=== PATIENT | male | born 1965 | race African-American/Black ===

== ENCOUNTER 2022-10-25 07:28 | Inpatient (IN) | payer MEDICAID, OTHER ==
[~2022-10-25] VITALS: Ht 180.3 cm; Wt 67.6 kg
[~2022-10-25 07:28] MED LIST: AZIT250T MT; P50 MT; PHEN100C4 PO
[2022-10-25 07:37] VITALS: O2SAT 99
[2022-10-25] MEDS ORDERED: MORPHINE SULFATE 4 MG/ML CPJ (NOT FOR IM USE) IV STA (07:41)
[2022-10-25 08:07] LABS: BASOPHILS % 0.4 % (0.0-2.0); EOSINOPHILS % 0.8 % (0.0-5.0); HEMATOCRIT. 47.1 % (42.0-52.0); HEMOGLOBIN. 16.1 g/dL (14.0-18.0); LYMPHOCYTES % 19.6 % (20.0-50.0); MEAN CORPUSCULAR HEMOGLOBIN 30.5 pg (28.0-32.0); MEAN CORPUSCULAR HGB CONC 34.1 g/dL (31.0-37.0); MEAN CORPUSCULAR VOLUME 89.4 fL (80.0-94.0); MONOCYTES % 7.7 % (2.0-8.0); NEUTROPHILS % 71.5 % (40.0-76.0); RED BLOOD CELL COUNT 5.27 mill/uL (4.7-6.1)
[2022-10-25 08:14] LABS: DIFFERENTIAL COMMENT 1
[2022-10-25 08:16] LABS: CHLORIDE 105 mEq/L (98-107); INDEX HEMOLYSI 1 (1-3); INDEX ICTERIC 1 (1-4); INDEX LIPEMIC 1 (1-3); POTASSIUM 4.1 mEq/L (3.5-5.1); SODIUM 136 mEq/L (136-145)
[2022-10-25 08:19] LABS: INR 0.9
[2022-10-25 08:24] LABS: ALANINE AMINOTRANSFERASE 29 IU/L (13-61); ALBUMIN 3.8 g/dL (3.4-5.0); ASPARTATE AMINOTRANSFERASE 23 IU/L (15-37); BILIRUBIN TOTAL 0.4 mg/dL (0.1-1.0); CALCIUM 9.6 mg/dL (8.5-10.1); CARBON DIOXIDE 27 mEq/L (21-32); CREATININE 0.8 mg/dL (0.6-1.3); GLUCOSE 99 mg/dL (70-105); PROTEIN TOTAL 9.4 g/dL (6.0-8.3); UREA NITROGEN BLOOD 8 mg/dL (7-21)
[2022-10-25] MEDS ORDERED: VANCOMYCIN 1G PREMIX 200 ML IV SCH (09:00)
[2022-10-25 09:41] LABS: PLATELET 330 x1000/uL (130-400)
[2022-10-25 10:46] LABS: CLARITY URINE CLEAR (CLEAR); COLOR URINE YELLOW (YELLOW); GLUCOSE URINE NEGATIVE (NEGATIVE); KETONES URINE NEGATIVE (NEGATIVE); LEUKOCYTE ESTERASE URINE 2+ (NEGATIVE); NITRITE URINE NEGATIVE (NEGATIVE); OCCULT BLOOD URINE TRACE (NEGATIVE); PROTEIN URINE NEGATIVE (NEGATIVE); SPECIFIC GRAVITY URINE 1.015 (1.005-1.030)
[2022-10-25 11:07] LABS: MUCUS URINE 1+ /lpf (NONE/TRACE); SQUAMOUS EPITHELIAL CELL URINE 2+ /lpf (RARE/1+)
[2022-10-25 11:09] LABS: RBC URINE 0-2 /hpf (0-2)
[2022-10-25 11:10] LABS: BACTERIA URINE TRACE; TRICHOMONAS URINE RARE; WBC URINE 50-100 /hpf (0-2)
[2022-10-25 22:00] VITALS: BP 133/88; PULSE 59; RESP 24; TEMP 97.7
[2022-10-25] MEDS ORDERED: HYDROCODONE/ACETAMINOPHEN 10/325MG TABLET PO PRN (22:15)
[2022-10-25] MEDS ORDERED: CEFTRIAXONE 1,000 MG in DEXTROSE 5% WATER 50 ML IV SCH (23:30)
[2022-10-26] VITALS: BP 114/65; PULSE 61; RESP 14; TEMP 96.9
[2022-10-26] MEDS ORDERED: VANCOMYCIN 750MG PREMIX 150 ML IV SCH ×2 (01:00→09:00)
[2022-10-26 04:00] VITALS: BP 109/73; PULSE 53; RESP 15; TEMP 97.6
[2022-10-26 08:00] VITALS: BP 102/58; PULSE 63; RESP 17; TEMP 98.1
[2022-10-26] MEDS: HYDROCODONE/ACETAMINOPHEN 10/325MG TABLET PO PRN ×3 (08:30→21:07)
[2022-10-26] MEDS ORDERED: NALOXONE HCL 0.4MG/ML VIAL IV PRN (08:30)
[2022-10-26] MEDS: VANCOMYCIN 750MG PREMIX 150 ML IV SCH ×3 (08:31→21:08)
[2022-10-26 11:26] LABS: BASOPHILS % 0.2 % (0.0-2.0); EOSINOPHILS % 1.1 % (0.0-5.0); HEMATOCRIT. 42.5 % (42.0-52.0); HEMOGLOBIN. 14.7 g/dL (14.0-18.0); LYMPHOCYTES % 24.3 % (20.0-50.0); MEAN CORPUSCULAR HEMOGLOBIN 30.8 pg (28.0-32.0); MEAN CORPUSCULAR HGB CONC 34.6 g/dL (31.0-37.0); MEAN CORPUSCULAR VOLUME 88.9 fL (80.0-94.0); MEAN PLATELET VOLUME 8.3 fl (7.4-10.4); MONOCYTES % 8.2 % (2.0-8.0); NEUTROPHILS % 66.2 % (40.0-76.0); PLATELET 267 x1000/uL (130-400); RED BLOOD CELL COUNT 4.78 mill/uL (4.7-6.1); RED CELL DISTRIBUTION WIDTH 14.1 % (11.6-14.6); WHITE BLOOD COUNT 5.2 x1000/uL (4.5-11.0)
[2022-10-26 11:30] LABS: CHLORIDE 108 mEq/L (98-107); INDEX HEMOLYSI 1 (1-3); INDEX ICTERIC 1 (1-4); INDEX LIPEMIC 1 (1-3); POTASSIUM 4.1 mEq/L (3.5-5.1); SODIUM 136 mEq/L (136-145)
[2022-10-26 11:34] LABS: CALCIUM 8.4 mg/dL (8.5-10.1); CARBON DIOXIDE 27 mEq/L (21-32); CREATININE 0.9 mg/dL (0.6-1.3); GLUCOSE 116 mg/dL (70-105); UREA NITROGEN BLOOD 12 mg/dL (7-21)
[2022-10-26 12:00] VITALS: BP 100/68; PULSE 59; RESP 18; TEMP 97.7
[2022-10-26 16:00] VITALS: BP 135/75; PULSE 55; RESP 18; TEMP 98.5
[2022-10-26 20:00] VITALS: BP 116/69; PULSE 54; RESP 17; TEMP 98.3
[2022-10-26] MEDS ORDERED: CEFTRIAXONE 1,000 MG in DEXTROSE 5% WATER 50 ML IV SCH (23:00)
[2022-10-27] VITALS: BP 97/59; PULSE 56; RESP 17; TEMP 98.1
[2022-10-27 04:00] VITALS: BP 101/59; PULSE 51; RESP 17; TEMP 98.2
[2022-10-27] MEDS: VANCOMYCIN 750MG PREMIX 150 ML IV SCH (05:39)
[2022-10-27 07:06] LABS: BASOPHILS % 0.2 % (0.0-2.0); HEMATOCRIT. 43.7 % (42.0-52.0); HEMOGLOBIN. 14.7 g/dL (14.0-18.0); LYMPHOCYTES % 19.8 % (20.0-50.0); MEAN CORPUSCULAR HEMOGLOBIN 30.4 pg (28.0-32.0); MEAN CORPUSCULAR HGB CONC 33.6 g/dL (31.0-37.0); MEAN CORPUSCULAR VOLUME 90.6 fL (80.0-94.0); MEAN PLATELET VOLUME 8.4 fl (7.4-10.4); MONOCYTES % 8.2 % (2.0-8.0); NEUTROPHILS % 70.8 % (40.0-76.0); PLATELET 269 x1000/uL (130-400); RED BLOOD CELL COUNT 4.82 mill/uL (4.7-6.1); RED CELL DISTRIBUTION WIDTH 13.9 % (11.6-14.6); WHITE BLOOD COUNT 7.9 x1000/uL (4.5-11.0)
[2022-10-27 09:12] LABS: CHLORIDE 104 mEq/L (98-107); INDEX HEMOLYSI 1 (1-3); INDEX ICTERIC 1 (1-4); INDEX LIPEMIC 1 (1-3); POTASSIUM 4.5 mEq/L (3.5-5.1); SODIUM 135 mEq/L (136-145)
[2022-10-27 09:14] LABS: CALCIUM 8.6 mg/dL (8.5-10.1); UREA NITROGEN BLOOD 16 mg/dL (7-21)
[2022-10-27 09:20] LABS: CARBON DIOXIDE 28 mEq/L (21-32); GLUCOSE 82 mg/dL (70-105); VANCOMYCIN TROUGH 17.6 ug/mL (5.0-10.0)
== END 2022-10-27 11:21 | disposition left against medical advice (07) | DRG 501 ==
LOC: ER 07:51 → 3WST 21:03
PROVIDERS: ADMIT Internal Medicine; ATTEND Internal Medicine
DX: N49.2 Inflammatory disorders of scrotum (principal); G40.909 Epilepsy, unspecified, not intractable, without status epilepticus; N39.0 Urinary tract infection, site not specified; Z53.29 Procedure and treatment not carried out because of patient's decision for other reasons; Z88.6 Allergy status to analgesic agent
CPT/HCPCS: 36415; 71045; 74176; 76870; 80048; 80053; 80202; 81003; 83605; 84145; 85025; 87070; 93005; 93976; 99285; J0696; J2270; J3370; J7060

== ENCOUNTER 2024-04-03 19:54 | Emergency (ER) | payer MEDICAID, OTHER ==
[~2024-04-03] VITALS: Ht 170.2 cm; Wt 66.5 kg
[2024-04-03 20:05] VITALS: BP 140/87; TEMP 98; O2SAT 97
[2024-04-03 20:19] VITALS: PULSE 104; RESP 18; O2SAT 97
== END 2024-04-04 03:10 | disposition left against medical advice (07) ==
LOC: ER 19:54
DX: R05.9 Cough, unspecified (principal); R50.9 Fever, unspecified; R09.89 Other specified symptoms and signs involving the circulatory and respiratory systems; Z53.21 Procedure and treatment not carried out due to patient leaving prior to being seen by health care provider